=== PATIENT | male | born 1950 | race Two or more races ===

== ENCOUNTER 2017-02-05 16:47 | Inpatient (IN) | payer MEDICARE ==
[~2017-02-05] VITALS: Ht 177.8 cm; Wt 72.6 kg
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
[2017-02-05 17:21] LABS: BASOPHILS % (AUTO) 0.6 % (0.0-2.0); EOSINOPHILS # (AUTO) 0.2 /CMM (0.0-0.7); EOSINOPHILS % (AUTO) 4.2 % (0.0-6.0); HEMATOCRIT 37 % (39-51); HEMOGLOBIN 11.8 g/dL (13.5-17.5); LYMPHOCYTES # (AUTO) 1.2 /CMM (0.8-4.8); LYMPHOCYTES % (AUTO) 23.1 % (20.0-44.0); MEAN CORPUSCULAR HEMOGLOBIN 27 PG (26.0-33.0); MEAN CORPUSCULAR HGB CONC 32 g/dl (31.0-36.0); MEAN CORPUSCULAR VOLUME 84 fL (80-96); MONOCYTES # (AUTO) 0.6 /CMM (0.1-1.30); MONOCYTES % (AUTO) 10.2 % (2.0-12.0); NEUTROPHILS # (AUTO) 3.4 /CMM (1.8-8.9); NEUTROPHILS % (AUTO) 61.9 % (43.0-81.0); PLATELET COUNT (AUTO) 220 /CMM (150-450); RDW COEFFICIENT OF VARIATION 17.4 (11.5-15.0); RED BLOOD CELL COUNT(AUTO) 4.35 MIL/uL (4.5-6.0); WHITE BLOOD COUNT (AUTO) 5.4 K/uL (4.3-11.0)
--- NOTE | 2017-02-05 17:33 | NUR ---
URINE OBTAINED SENT TO THE LAB.
[2017-02-05 17:37] LABS: ALANINE AMINOTRANSFERASE 19 U/L (12-78); ALBUMIN 3.6 g/dL (3.4-5.0); ALCOHOL, BLOOD < 3 mg/dL (0-0); ALKALINE PHOSPHATASE 94 U/L (46-116); ASPARTATE AMINOTRANSFERASE 17 U/L (15-37); BILIRUBIN,DIRECT 0.2 mg/dL (0.0-0.2); BILIRUBIN,TOTAL 0.5 mg/dL (0.2-1.0); CALCIUM, SERUM 8.5 mg/dL (8.5-10.1); CARBON DIOXIDE 29 mmol/L (21-32); CHLORIDE 105 mmol/L (98-107); CREATININE 1.1 mg/dL (0.6-1.3); GFR 67 mL/min (>60); GLUCOSE 100 mg/dL (74-106); POTASSIUM 3.5 mmol/L (3.5-5.1); SODIUM SERUM 141 mmol/L (136-145); TOTAL PROTEIN, SERUM 6.9 g/dL (6.4-8.2); UREA NITROGEN, BLOOD 15 mg/dL (7-18)
[2017-02-05 17:39] LABS: APPEARANCE,URINE Clear (CLEAR); BILIRUBIN,URINE Negative (NEGATIVE); BLOOD, URINE Moderate Ery/uL (NEGATIVE); COLOR,URINE Yellow (YELLOW); KETONES,URINE Trace (NEGATIVE); LEUKOCYTE ESTERASE ,URINE Moderate (NEGATIVE); NITRITE, URINE Positive (NEGATIVE); PH,URINE 5.5 (5.0-8.0); PROTEIN,URINE Trace mg/dl (NEGATIVE); UGLUCOSE Negative (NEGATIVE); UROBILINOGEN,URINE 0.2 EU/dL (0.2)
[2017-02-05 17:41] LABS: INR 1.3 (0.87-1.13); PROTHROMBIN TIME 13.7 SECS (9.5-12.7)
[2017-02-05 17:45] LABS: PHENCYCLIDINE SCREEN,URINE NEGATIVE (NEGATIVE)
[2017-02-05 17:47] LABS: CANNABINOID, URINE POSITIVE (NEGATIVE)
[2017-02-05 17:47] LABS: ACETAMINOPHEN < 2 ug/ml (10-30); SALICYLATE < 2.8 mg/dL (2.8-20.0)
[2017-02-05] MEDS ORDERED: CIPROFLOXACIN HCL 500 MG TABLET ONE (17:57)
[2017-02-05] MEDS ORDERED: CIPROFLOXACIN HCL 500 MG TABLET PO ONE (18:00)
--- NOTE | 2017-02-05 18:20 | NUR ---
REPORT GIVEN TO SOFÍA RAMIREZ FOR [facility] GPS 220
[2017-02-05 18:37] LABS: ADD URINE CULTURE YES; BACTERIA,URINE Many /HPF (None Seen); SQUAMOUS EPITHELIAL CELL,UR Few /HPF (None Seen)
[2017-02-05] MEDS ORDERED: FURO-145 PO (18:44)
[2017-02-05] MEDS ORDERED: CARV6.252 PO (18:44)
[2017-02-05] MEDS ORDERED: PANT40TA2 PO (18:44)
[2017-02-05] MEDS ORDERED: CLOP75TA2 PO (18:44)
[2017-02-05] MEDS ORDERED: ALFU10TA10 PO (18:44)
[2017-02-05] MEDS ORDERED: DICL30AD3 PO (18:44)
[2017-02-05] MEDS ORDERED: TRAZ-147 PO (18:44)
[2017-02-05] MEDS ORDERED: SERT100T12 PO (18:44)
[2017-02-05] MEDS ORDERED: OXYB5TAB11 PO (18:44)
[2017-02-05] MEDS ORDERED: ATOR80TA PO (18:44)
[2017-02-05] MEDS ORDERED: BUPR-51 PO (18:44)
[2017-02-05] MEDS ORDERED: GABA-534 PO (18:44)
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
[2017-02-05] MEDS ORDERED: MAG HYDROX/AL HYDROX/SIMETH 30 ML UDC PO PRN (21:00)
[2017-02-05] MEDS ORDERED: ACETAMINOPHEN 325 MG TABLET PO PRN (21:00)
[2017-02-05] MEDS ORDERED: MAGNESIUM HYDROXIDE 30 ML UDC PO PRN (21:00)
[2017-02-05] MEDS ORDERED: WARF2TAB6 PO (22:18)
[2017-02-05] MEDS ORDERED: HYDROMORPHONE HCL 2 MG TABLET ONE (22:45)
[2017-02-05] MEDS ORDERED: ATORVASTATIN 40 MG TABLET ONE (22:46)
[2017-02-05] MEDS ORDERED: WARFARIN SODIUM 2 MG TABLET ONE (22:47)
[2017-02-05] MEDS: ATORVASTATIN 40 MG TABLET PO SCH (22:57)
[2017-02-05] MEDS: WARFARIN SODIUM 2 MG TABLET PO SCH (22:57)
[2017-02-05] MEDS: HYDROMORPHONE HCL 2 MG TABLET PO PRN (22:59)
[2017-02-05] MEDS: CARVEDILOL 6.25 MG TABLET PO SCH (23:00)
[2017-02-05] MEDS ORDERED: TRAZODONE 50 MG TABLET PO SCH (23:00)
[2017-02-06] MEDS ORDERED: GABAPENTIN 300 MG CAPSULE ONE (00:12)
[2017-02-06] MEDS: GABAPENTIN 300 MG CAPSULE PO SCH ×4 (00:27→17:00)
[2017-02-06 08:06] LABS: CREATININE 0.9 mg/dL (0.6-1.3)
[2017-02-06 08:12] LABS: INR 1.24 (0.87-1.13); PROTHROMBIN TIME 13.4 SECS (9.5-12.7)
[2017-02-06 08:13] VITALS: BP 127/74
[2017-02-06] MEDS: OXYBUTYNIN CHLORIDE 5 MG TABLET PO SCH (08:35)
[2017-02-06] MEDS: PANTOPRAZOLE 40 MG TABLET.DR PO SCH (08:35)
[2017-02-06] MEDS: CARVEDILOL 6.25 MG TABLET PO SCH ×2 (08:35→21:54)
[2017-02-06] MEDS: FUROSEMIDE 20 MG TABLET PO SCH (08:36)
[2017-02-06] MEDS: CLOPIDOGREL BISULFATE 75 MG TABLET PO SCH (08:36)
[2017-02-06] MEDS ORDERED: SERTRALINE HCL 200 MG PO SCH (09:00)
[2017-02-06] MEDS ORDERED: BUPROPION XL 150 MG TAB.ER.24 PO SCH (09:00)
[2017-02-06] MEDS: HYDROMORPHONE HCL 2 MG TABLET PO PRN (11:46)
--- NOTE | 2017-02-06 12:00 | NUR ---
GPS-RN- NOTES: NOTIFIED DR. SALAS ABOUT LAB VALUES: PT=13.4, INR= 1.24, RBC= 4.35, HGB= 11.8, HCT= 37, RDW COEFF OF TANO= 17.4, URINE RBC= 6-10, URINE WBC= 11-20. NEW ORDERS GIVEN AT THIS TIME
--- NOTE | 2017-02-06 12:08 | NUR ---
Initial discharge plan: Pt. resides at [facility] [address], [place] [address] and would like to return, but facility notified intake department that they are unable to manage the patient at their facility and may need help relocating the patient to another more appropriate facility. MARILEE contacted Sujey from the facility to get confirmation but she has not been responsive yet. MARILEE will attempt again later. MARILEE spoke with Jabarimatt Chaney [phone] who says he has been distanced but is willing to be somewhat involved and would like to get updates. SW will help form a safe and proper discharge.
[2017-02-06] MEDS: DIVALPROEX SODIUM 125 MG CAP.SPRINK PO SCH ×2 (14:54→16:59)
[2017-02-06] MEDS: QUETIAPINE FUMARATE 25 MG TABLET PO SCH ×2 (14:56→17:01)
[2017-02-06 16:00] VITALS: BP 121/63
[2017-02-06] MEDS ORDERED: CIPROFLOXACIN HCL 250 MG TABLET PO SCH ×2 (16:00→21:00)
[2017-02-06] MEDS: WARFARIN SODIUM 2 MG TABLET PO SCH (17:00)
[2017-02-06] MEDS: CEPHALEXIN MONOHYDRATE 250 MG CAPSULE PO SCH ×2 (17:03→21:54)
[2017-02-06 20:27] VITALS: BP 107/61
[2017-02-06] MEDS: ATORVASTATIN 40 MG TABLET PO SCH (21:54)
[2017-02-06] MEDS ORDERED: ALFUZOSIN HCL 10 MG PO SCH (22:00)
[2017-02-07 08:00] VITALS: BP 108/60
[2017-02-07] MEDS: QUETIAPINE FUMARATE 25 MG TABLET PO SCH ×2 (08:10→16:28)
[2017-02-07] MEDS: CARVEDILOL 6.25 MG TABLET PO SCH ×2 (08:10→20:45)
[2017-02-07] MEDS: PANTOPRAZOLE 40 MG TABLET.DR PO SCH (08:10)
[2017-02-07] MEDS: CEPHALEXIN MONOHYDRATE 250 MG CAPSULE PO SCH ×2 (08:14→21:39)
[2017-02-07] MEDS: OXYBUTYNIN CHLORIDE 5 MG TABLET PO SCH (08:16)
[2017-02-07] MEDS: DIVALPROEX SODIUM 125 MG CAP.SPRINK PO SCH ×3 (08:16→16:27)
[2017-02-07] MEDS: GABAPENTIN 300 MG CAPSULE PO SCH ×3 (08:16→16:28)
[2017-02-07] MEDS: CLOPIDOGREL BISULFATE 75 MG TABLET PO SCH (08:16)
[2017-02-07] MEDS: FUROSEMIDE 20 MG TABLET PO SCH (08:18)
[2017-02-07 11:48] LABS: INR 1.33 (0.87-1.13); PROTHROMBIN TIME 14.5 SECS (9.5-12.7)
[2017-02-07] MEDS: HYDROMORPHONE HCL 2 MG TABLET PO PRN ×2 (15:49→21:43)
--- NOTE | 2017-02-07 15:49 | NUR ---
RN-CO: DILAUDID 4 MG PO TAB GIVEN FOR C/O 8/10 BACK PAIN.
[2017-02-07] MEDS: WARFARIN SODIUM 2 MG TABLET PO SCH (16:31)
[2017-02-07 20:00] VITALS: BP 105/68
[2017-02-07] MEDS: ATORVASTATIN 40 MG TABLET PO SCH (21:34)
--- NOTE | 2017-02-07 21:43 | NUR ---
GPS RN NOTES PATIENT COMPLAINED OF LOW BACK PAIN. PRN DILAUDID GIVEN PO AT [phone] FOR PAIN RELIEF.
[2017-02-08 06:57] LABS: INR 1.38 (0.87-1.13); PROTHROMBIN TIME 15.1 SECS (9.5-12.7)
[2017-02-08 08:00] VITALS: BP 117/68
[2017-02-08] MEDS: FUROSEMIDE 20 MG TABLET PO SCH (08:13)
[2017-02-08] MEDS: PANTOPRAZOLE 40 MG TABLET.DR PO SCH (08:13)
[2017-02-08] MEDS: QUETIAPINE FUMARATE 25 MG TABLET PO SCH ×2 (08:13→17:16)
[2017-02-08] MEDS: DIVALPROEX SODIUM 125 MG CAP.SPRINK PO SCH ×3 (08:13→17:16)
[2017-02-08] MEDS: OXYBUTYNIN CHLORIDE 5 MG TABLET PO SCH (08:13)
[2017-02-08] MEDS: CEPHALEXIN MONOHYDRATE 250 MG CAPSULE PO SCH ×2 (08:13→21:04)
[2017-02-08] MEDS: CLOPIDOGREL BISULFATE 75 MG TABLET PO SCH (08:13)
[2017-02-08] MEDS: CARVEDILOL 6.25 MG TABLET PO SCH ×2 (08:13→21:04)
[2017-02-08] MEDS: GABAPENTIN 300 MG CAPSULE PO SCH ×3 (08:14→17:16)
--- NOTE | 2017-02-08 14:34 | NUR ---
SW referred the patient to [facility] ([facility]) [address] [place] [address] . will follow up
[2017-02-08 16:00] VITALS: BP 113/76
[2017-02-08] MEDS: WARFARIN SODIUM 5 MG TABLET PO SCH (17:14)
[2017-02-08] MEDS: HYDROMORPHONE HCL 2 MG TABLET PO PRN (18:52)
[2017-02-08 20:00] VITALS: BP 107/68
[2017-02-08] MEDS: ATORVASTATIN 40 MG TABLET PO SCH (21:04)
[2017-02-09 07:38] LABS: INR 1.44 (0.87-1.13); PROTHROMBIN TIME 15.8 SECS (9.5-12.7)
[2017-02-09 08:00] VITALS: BP 114/65
[2017-02-09] MEDS: CEPHALEXIN MONOHYDRATE 250 MG CAPSULE PO SCH ×2 (08:06→22:03)
[2017-02-09] MEDS: PANTOPRAZOLE 40 MG TABLET.DR PO SCH (08:06)
[2017-02-09] MEDS: CARVEDILOL 6.25 MG TABLET PO SCH ×2 (08:07→21:00)
[2017-02-09] MEDS: CLOPIDOGREL BISULFATE 75 MG TABLET PO SCH (08:07)
[2017-02-09] MEDS: QUETIAPINE FUMARATE 25 MG TABLET PO SCH ×2 (08:07→16:42)
[2017-02-09] MEDS: FUROSEMIDE 20 MG TABLET PO SCH (08:07)
[2017-02-09] MEDS: OXYBUTYNIN CHLORIDE 5 MG TABLET PO SCH (08:07)
[2017-02-09] MEDS: GABAPENTIN 300 MG CAPSULE PO SCH ×3 (08:07→16:43)
[2017-02-09] MEDS: DIVALPROEX SODIUM 125 MG CAP.SPRINK PO SCH ×3 (08:07→16:43)
[2017-02-09] MEDS: HYDROMORPHONE HCL 2 MG TABLET PO PRN (15:35)
[2017-02-09 16:00] VITALS: BP 119/70
[2017-02-09] MEDS: WARFARIN SODIUM 5 MG TABLET PO SCH (16:45)
[2017-02-09 20:00] VITALS: BP 132/67
--- NOTE | 2017-02-09 20:00 | NUR ---
GPS/DOPE DRY HOUSE OPERATOR; RECEIVED PT IN BED QUIET . SITTER PRESENT IN THE ROOM. DENIES PAIN. BREATHING NON LABORED. BED ON LOWER POSITION AND LOCKED FOR SAFETY. SIDE RAILS ARE UP FOR SAFETY. WILL CONTINUE TO MONITOR.
[2017-02-09] MEDS: NITROFURANTOIN/NITROFURAN MAC 100 MG CAPSULE PO SCH (22:04)
[2017-02-09] MEDS: ATORVASTATIN 40 MG TABLET PO SCH (22:05)
--- NOTE | 2017-02-10 06:49 | NUR ---
GPS/IT COMMUNICATIONS SPECIALIST; INCONTINENT OF URINE. KEPT CLEAN AND DRY AND DIAPER CHANGED BY THE SITTER. SLEPT FOR 7 HOURS. SITTER PRESENT AT ALL TIMES. WILL ENDORSE TO THE DAY SHIFT NURSE.
[2017-02-10 06:56] LABS: BASOPHILS % (AUTO) 0.7 % (0.0-2.0); EOSINOPHILS # (AUTO) 0.4 /CMM (0.0-0.7); EOSINOPHILS % (AUTO) 5.4 % (0.0-6.0); HEMATOCRIT 41 % (39-51); HEMOGLOBIN 13.1 g/dL (13.5-17.5); LYMPHOCYTES # (AUTO) 1.7 /CMM (0.8-4.8); MEAN CORPUSCULAR HEMOGLOBIN 27 PG (26.0-33.0); MEAN CORPUSCULAR HGB CONC 32 g/dl (31.0-36.0); MEAN CORPUSCULAR VOLUME 84 fL (80-96); MONOCYTES # (AUTO) 0.6 /CMM (0.1-1.30); MONOCYTES % (AUTO) 9.5 % (2.0-12.0); NEUTROPHILS # (AUTO) 3.9 /CMM (1.8-8.9); NEUTROPHILS % (AUTO) 58.4 % (43.0-81.0); PLATELET COUNT (AUTO) 233 /CMM (150-450); RDW COEFFICIENT OF VARIATION 17.7 (11.5-15.0); RED BLOOD CELL COUNT(AUTO) 4.84 MIL/uL (4.5-6.0); WHITE BLOOD COUNT (AUTO) 6.7 K/uL (4.3-11.0)
[2017-02-10 07:04] LABS: INR 1.6 (0.87-1.13); PROTHROMBIN TIME 17.7 SECS (9.5-12.7)
[2017-02-10 07:15] LABS: ALBUMIN 3.6 g/dL (3.4-5.0); BILIRUBIN,TOTAL 0.4 mg/dL (0.2-1.0); CALCIUM, SERUM 8.4 mg/dL (8.5-10.1); CREATININE 0.9 mg/dL (0.6-1.3); MAGNESIUM 1.8 mg/dL (1.8-2.4); POTASSIUM 3.6 mmol/L (3.5-5.1); TOTAL PROTEIN, SERUM 6.9 g/dL (6.4-8.2)
[2017-02-10 08:00] VITALS: BP 132/73
[2017-02-10] MEDS: NITROFURANTOIN/NITROFURAN MAC 100 MG CAPSULE PO SCH ×2 (09:16→21:45)
[2017-02-10] MEDS: PANTOPRAZOLE 40 MG TABLET.DR PO SCH (09:16)
[2017-02-10] MEDS: DIVALPROEX SODIUM 125 MG CAP.SPRINK PO SCH ×3 (09:16→17:56)
[2017-02-10] MEDS: OXYBUTYNIN CHLORIDE 5 MG TABLET PO SCH (09:16)
[2017-02-10] MEDS: GABAPENTIN 300 MG CAPSULE PO SCH ×3 (09:16→17:56)
[2017-02-10] MEDS: CLOPIDOGREL BISULFATE 75 MG TABLET PO SCH (09:17)
[2017-02-10] MEDS: CEPHALEXIN MONOHYDRATE 250 MG CAPSULE PO SCH ×2 (09:17→21:45)
[2017-02-10] MEDS: FUROSEMIDE 20 MG TABLET PO SCH (09:17)
[2017-02-10] MEDS: QUETIAPINE FUMARATE 25 MG TABLET PO SCH ×2 (09:17→17:56)
[2017-02-10] MEDS: CARVEDILOL 6.25 MG TABLET PO SCH ×2 (09:18→21:00)
[2017-02-10 16:00] VITALS: BP 109/77
[2017-02-10] MEDS: LACTOBACILLUS RHAMNOSUS GG 1 EACH CAP.SPRINK PO SCH (17:56)
[2017-02-10] MEDS: WARFARIN SODIUM 5 MG TABLET PO SCH (17:57)
[2017-02-10 20:10] VITALS: BP 103/70
[2017-02-10] MEDS: HYDROMORPHONE HCL 2 MG TABLET PO PRN (20:31)
[2017-02-10] MEDS: ATORVASTATIN 40 MG TABLET PO SCH (21:45)
--- NOTE | 2017-02-11 01:12 | NUR ---
Pt has been with depressed mood & flat affect but compliant with care.
[2017-02-11 07:50] LABS: INR 2.03 (0.87-1.13); PROTHROMBIN TIME 22.7 SECS (9.5-12.7)
[2017-02-11 08:00] VITALS: BP 134/83
[2017-02-11] MEDS: PANTOPRAZOLE 40 MG TABLET.DR PO SCH (08:37)
[2017-02-11] MEDS: DIVALPROEX SODIUM 125 MG CAP.SPRINK PO SCH ×3 (08:38→17:27)
[2017-02-11] MEDS: CARVEDILOL 6.25 MG TABLET PO SCH ×2 (08:38→20:33)
[2017-02-11] MEDS: LACTOBACILLUS RHAMNOSUS GG 1 EACH CAP.SPRINK PO SCH ×2 (08:38→17:22)
[2017-02-11] MEDS: FUROSEMIDE 20 MG TABLET PO SCH (08:39)
[2017-02-11] MEDS: OXYBUTYNIN CHLORIDE 5 MG TABLET PO SCH (08:39)
[2017-02-11] MEDS: CEPHALEXIN MONOHYDRATE 250 MG CAPSULE PO SCH ×2 (08:39→20:34)
[2017-02-11] MEDS: CLOPIDOGREL BISULFATE 75 MG TABLET PO SCH (08:40)
[2017-02-11] MEDS: GABAPENTIN 300 MG CAPSULE PO SCH ×3 (08:40→17:22)
[2017-02-11] MEDS: NITROFURANTOIN/NITROFURAN MAC 100 MG CAPSULE PO SCH ×2 (08:40→20:34)
[2017-02-11] MEDS: QUETIAPINE FUMARATE 25 MG TABLET PO SCH ×2 (08:40→17:22)
[2017-02-11 16:16] VITALS: BP 130/75
[2017-02-11] MEDS: WARFARIN SODIUM 1 MG TABLET PO SCH (17:26)
--- NOTE | 2017-02-11 19:11 | NUR ---
GPS/RN NOTE: PATIENT ON HIS WHEELCHAIR INSIDE HIS ROOM, RESPONSIVE AND CALM, NO APPARENT DISTRESS NOTED.
[2017-02-11] MEDS ORDERED: QUETIAPINE FUMARATE 25 MG TABLET PO SCH (20:00)
[2017-02-11 20:02] VITALS: BP 111/72
[2017-02-11] MEDS: ATORVASTATIN 40 MG TABLET PO SCH (20:34)
[2017-02-12 07:16] LABS: BASOPHILS % (AUTO) 0.7 % (0.0-2.0); EOSINOPHILS # (AUTO) 0.5 /CMM (0.0-0.7); EOSINOPHILS % (AUTO) 6.8 % (0.0-6.0); HEMATOCRIT 44 % (39-51); HEMOGLOBIN 14.1 g/dL (13.5-17.5); LYMPHOCYTES # (AUTO) 1.6 /CMM (0.8-4.8); LYMPHOCYTES % (AUTO) 24.3 % (20.0-44.0); MEAN CORPUSCULAR HEMOGLOBIN 27 PG (26.0-33.0); MEAN CORPUSCULAR HGB CONC 32 g/dl (31.0-36.0); MEAN CORPUSCULAR VOLUME 84 fL (80-96); MONOCYTES # (AUTO) 0.8 /CMM (0.1-1.30); MONOCYTES % (AUTO) 11.3 % (2.0-12.0); NEUTROPHILS # (AUTO) 3.8 /CMM (1.8-8.9); NEUTROPHILS % (AUTO) 56.9 % (43.0-81.0); PLATELET COUNT (AUTO) 226 /CMM (150-450); RDW COEFFICIENT OF VARIATION 17.9 (11.5-15.0); RED BLOOD CELL COUNT(AUTO) 5.24 MIL/uL (4.5-6.0); WHITE BLOOD COUNT (AUTO) 6.7 K/uL (4.3-11.0)
[2017-02-12 07:19] LABS: INR 2.54 (0.87-1.13); PROTHROMBIN TIME 28.8 SECS (9.5-12.7)
[2017-02-12 07:32] LABS: ALBUMIN 3.8 g/dL (3.4-5.0); BILIRUBIN,TOTAL 0.4 mg/dL (0.2-1.0); CALCIUM, SERUM 8.7 mg/dL (8.5-10.1); CREATININE 1.1 mg/dL (0.6-1.3); POTASSIUM 4.1 mmol/L (3.5-5.1); TOTAL PROTEIN, SERUM 7.4 g/dL (6.4-8.2)
[2017-02-12] MEDS: PANTOPRAZOLE 40 MG TABLET.DR PO SCH (08:16)
[2017-02-12] MEDS: OXYBUTYNIN CHLORIDE 5 MG TABLET PO SCH (08:17)
[2017-02-12] MEDS: CARVEDILOL 6.25 MG TABLET PO SCH ×2 (08:17→21:53)
[2017-02-12] MEDS: DIVALPROEX SODIUM 125 MG CAP.SPRINK PO SCH ×3 (08:17→20:48)
[2017-02-12] MEDS: CEPHALEXIN MONOHYDRATE 250 MG CAPSULE PO SCH ×2 (08:17→20:48)
[2017-02-12] MEDS: LACTOBACILLUS RHAMNOSUS GG 1 EACH CAP.SPRINK PO SCH ×2 (08:17→16:33)
[2017-02-12] MEDS: CLOPIDOGREL BISULFATE 75 MG TABLET PO SCH (08:18)
[2017-02-12] MEDS: QUETIAPINE FUMARATE 25 MG TABLET PO SCH ×2 (08:18→16:33)
[2017-02-12] MEDS: GABAPENTIN 300 MG CAPSULE PO SCH ×3 (08:18→16:33)
[2017-02-12] MEDS: FUROSEMIDE 20 MG TABLET PO SCH (08:18)
[2017-02-12] MEDS: NITROFURANTOIN/NITROFURAN MAC 100 MG CAPSULE PO SCH ×2 (08:18→20:48)
[2017-02-12 08:19] VITALS: BP 118/71
[2017-02-12] MEDS: HYDROMORPHONE HCL 2 MG TABLET PO PRN ×2 (11:47→20:51)
[2017-02-12 16:20] VITALS: BP 116/73
[2017-02-12] MEDS: WARFARIN SODIUM 1 MG TABLET PO SCH (16:33)
[2017-02-12] MEDS ORDERED: QUETIAPINE FUMARATE 25 MG TABLET PO SCH (20:00)
[2017-02-12 20:19] VITALS: BP 144/83
[2017-02-12] MEDS: ATORVASTATIN 40 MG TABLET PO SCH (21:52)
[2017-02-13 07:17] LABS: INR 2.5 (0.87-1.13); PROTHROMBIN TIME 28.4 SECS (9.5-12.7)
[2017-02-13 08:22] VITALS: BP 114/70
[2017-02-13] MEDS: CLOPIDOGREL BISULFATE 75 MG TABLET PO SCH (08:34)
[2017-02-13] MEDS: NITROFURANTOIN/NITROFURAN MAC 100 MG CAPSULE PO SCH (08:34)
[2017-02-13] MEDS: LACTOBACILLUS RHAMNOSUS GG 1 EACH CAP.SPRINK PO SCH (08:34)
[2017-02-13] MEDS: PANTOPRAZOLE 40 MG TABLET.DR PO SCH (08:34)
[2017-02-13] MEDS: QUETIAPINE FUMARATE 25 MG TABLET PO SCH (08:34)
[2017-02-13 08:36] VITALS: BP 114/70
[2017-02-13] MEDS: CARVEDILOL 6.25 MG TABLET PO SCH (08:36)
[2017-02-13] MEDS: OXYBUTYNIN CHLORIDE 5 MG TABLET PO SCH (08:37)
[2017-02-13] MEDS: DIVALPROEX SODIUM 125 MG CAP.SPRINK PO SCH (08:37)
[2017-02-13] MEDS: CEPHALEXIN MONOHYDRATE 250 MG CAPSULE PO SCH (08:37)
[2017-02-13] MEDS: GABAPENTIN 300 MG CAPSULE PO SCH (08:38)
[2017-02-13] MEDS: FUROSEMIDE 20 MG TABLET PO SCH (08:38)
--- NOTE | 2017-02-13 13:57 | NUR ---
DISCHARGE NOTES/ PATIENT D/C AT THIS TIME GOING SNF. PATIENT A/O X3/4, PATIENT MED COMPLIANT, V/S STABLE, MEDICALLY STABLE, NO COMPLAINING OF PAIN. PATIENT DENIED SI/HI/AVH AT THIS TIME. MED RECONCILIATION, AND DISCHARGE ORDER REVIEWED AND EXPLAINED TO. REPORT GIVEN SNF RN. RN VERBALIZED UNDERSTANDING. BELONGING RETURNED BACK TO THE PATIENT. PATIENT RECREATIONAL ASSISTANT BY AMBULANCE. FAMILY NOTIFIED.
== END 2017-02-13 13:57 | DRG 885 ==
LOC: ER 16:49 → GPS 18:26
PROVIDERS: ADMIT Psychiatry & Neurology Psychosomatic Medicine; ATTEND Internal Medicine
DX: F39 Unspecified mood [affective] disorder (principal); N39.0 Urinary tract infection, site not specified; I69.359 Hemiplegia and hemiparesis following cerebral infarction affecting unspecified side; F32.9 Major depressive disorder, single episode, unspecified; F29 Unspecified psychosis not due to a substance or known physiological condition; I10 Essential (primary) hypertension; E78.5 Hyperlipidemia, unspecified; Z79.01 Long term (current) use of anticoagulants; I48.0 Paroxysmal atrial fibrillation; I25.10 Atherosclerotic heart disease of native coronary artery without angina pectoris; Z95.2 Presence of prosthetic heart valve; K21.9 Gastro-esophageal reflux disease without esophagitis; F41.9 Anxiety disorder, unspecified
CPT/HCPCS: 36415; 80048-TC; 80053-TC; 80061-TC; 80076-TC; 80164-TC; 80305; 81000-TC; 82565-TC; 83735-TC; 85025-TC; 85610-TC; 85730-TC; 87081-TC; 87086-TC; 87186-TC; A4606; G0480; G6039-TC; Z7610